=== PATIENT | male | born 2000 | race Asian ===

== ENCOUNTER 2023-08-31 00:32 | Emergency (ER) | payer OTHER ==
[2023-08-31 00:59] VITALS: BP 151/71; O2SAT 100
[2023-08-31] MEDS ORDERED: IBUPROFEN 600 MG TABLET PO ONE (05:06)
--- NOTE | 2023-08-31 07:08 | ED Physician Documentation ---
ED Addendum - Addendum Addendum: 08/31/23 05:37 SEE PAPER CHART [facility]
--- NOTE | 2023-08-31 09:14 | XRAY Report ---
PROCEDURE: Knee 3 View LT INDICATIONS: pain, tenderness TECHNIQUE: 3 views of the knee were acquired. COMPARISON: None. FINDINGS: Bones: No acute fractures or dislocations. No suspicious bony lesions. Soft tissues: No knee joint effusion. No suspicious soft tissue calcifications or masses. IMPRESSION: No acute osseous abnormality. If there is clinical concern or persistent symptoms, additional imaging such as repeat radiographs or advanced imaging (e.g. CT, MRI) may be helpful for further evaluation. There is no significant discrepancy when compared with the preliminary overnight report. Reviewed by: Waqar Flores MD on 08/31/2023 9:13 AM [facility] Approved by: Waqar Flores MD on 08/31/2023 9:13 AM [facility] Station ID: [id number]
--- NOTE | 2023-08-31 09:17 | XRAY Report ---
PROCEDURE: Foot 3 View LT INDICATIONS: pain, tenderness TECHNIQUE: 3 views of the foot were acquired. COMPARISON: None. FINDINGS: Bones: No acute fractures or dislocations. No suspicious bony lesions. Soft tissues: No suspicious soft tissue calcifications or masses. IMPRESSION: No acute osseous abnormality. If there is clinical concern or persistent symptoms, additional imaging such as repeat radiographs or advanced imaging (e.g. CT, MRI) may be helpful for further evaluation. There is no significant discrepancy when compared with the preliminary overnight report. Reviewed by: Waqar Flores MD on 08/31/2023 9:16 AM [facility] Approved by: Waqar Flores MD on 08/31/2023 9:16 AM [facility] Station ID: [id number]
== END 2023-08-31 05:55 | disposition home or self-care (01) ==
LOC: ED 00:32
DX: S83.92XA Sprain of unspecified site of left knee, initial encounter (principal); S00.03XA Contusion of scalp, initial encounter; S90.32XA Contusion of left foot, initial encounter; V28.49XA Other motorcycle driver injured in noncollision transport accident in traffic accident, initial encounter
CPT/HCPCS: 73562; 73630; 99282; 99283; A9270